=== PATIENT | female | born 1945 | race Caucasian/White ===

== ENCOUNTER 2017-02-08 05:39 | Day surgery (SDC) | payer MEDICARE, OTHER ==
[~2017-02-08] VITALS: Ht 170.2 cm; Wt 74.4 kg
[~2017-02-08 05:39] MED LIST: ADVAIR DISKUS IN; ALBUTEROL S2.5 MG/.5 IN; CALCIUM +D PO; CLOBETASOL0.053 EX; ESTRACE VAG0.1 MG/GM VA; LORTAB 5/3255 MG PO; LOSARTAN POTASS50 MG PO; MEDDOSEPAK PO; METFORMIN500 M1 PO; OMEPRAZOLE20 MG PO; PROLIA60 MG/ML SC; PROVENTIL0.083 % IN; STOOL SOFTE1 PO; VIACTIV PO; VITAMIN K100 MC1 PO; ZITHROMAX250 MG PO; ZOCOR20 MG PO; [UNRECOGNIZED DRUG - OTHER] PO
[2017-02-08 08:12] VITALS: BP 117/58
== END 2017-02-08 08:30 | disposition home or self-care (01) ==
LOC: ENDO 05:39 → ORM 07:30 → ENDO 07:30
PROVIDERS: ATTEND Internal Medicine Gastroenterology
PROC: 0DBL8ZX Excision of Transverse Colon, Via Natural or Artificial Opening Endoscopic, Diagnostic (ICD-10-PCS; principal; 2017-02-08)
PROC: 0DBM8ZX Excision of Descending Colon, Via Natural or Artificial Opening Endoscopic, Diagnostic (ICD-10-PCS; 2017-02-08)
PROC: 0DBP8ZX Excision of Rectum, Via Natural or Artificial Opening Endoscopic, Diagnostic (ICD-10-PCS; 2017-02-08)
DX: K59.00 Constipation, unspecified (principal); K64.4 Residual hemorrhoidal skin tags; K64.8 Other hemorrhoids; K57.30 Diverticulosis of large intestine without perforation or abscess without bleeding; K63.5 Polyp of colon; K62.1 Rectal polyp; I10 Essential (primary) hypertension; K21.9 Gastro-esophageal reflux disease without esophagitis; E78.00 Pure hypercholesterolemia, unspecified; E11.9 Type 2 diabetes mellitus without complications; Z86.010 Personal history of colon polyps